=== PATIENT | male | born 1990 | race Two or more races ===

== ENCOUNTER → 2024-03-19 | Outpatient (CLI) | payer SELFPAY ==
[2024-03-19 17:03] LABS: % Variance 6 %; % Variance Motility 0 %; Count Side 1 32; Count Side 2 34; Motl CLS 1 50; Motl CLS 2 50; Sperm Count 33 Million (20-50); Sperm Motility 50 % (>=50)
[2024-03-19 17:04] LABS: Room Temperature 24 (20-27C (Area))
== END | disposition home or self-care (01) ==
LOC: COPL 15:55 → SLDO 15:55
PROVIDERS: PCP Family Medicine; Referring Provider Family Medicine; Visit Provider Family Medicine
DX: Z31.69 Encounter for other general counseling and advice on procreation (principal)
CPT/HCPCS: 89310